=== PATIENT | female | born 2000 | race Caucasian/White ===

== ENCOUNTER 2022-07-24 05:31 | Inpatient (IN) ==
--- NOTE | 2022-05-14 10:20 | PAT Medication Instructions ---
Medication Instructions Date of Service May 14, 2022 Home Medications prenat.vits,stormy,evh-jtyv-faowc 1 tab PO DAILY aspirin 81 mg tablet 81 mg PO QAM ASK your surgeon for instructions aspirin 81 mg tablet 81 mg PO QAM DO NOT take the morning of surgery prenat.vits,stormy,nbg-fdzo-ripqu 1 tab PO DAILY Other Notes If you have any questions please call us at [phone] or [phone] or [phone] or [phone]
--- NOTE | 2022-05-20 12:03 | Anesthesiology Consultation ---
Date of Service May 20, 2022 Assessment & Plan (1) Encounter for pre-operative examination: - COVID screening: Per assessment on 05/20: No known COVID-19 positive contacts or current COVID-19 related symptoms. Travel screen negative. Patient vaccinated. At surgeon discretion if preop Covid testing being done. - Exam and advise: Pt seen at [facility] 05/20 as E&A for upcoming repeat scheduled 07/24 at [facility]. Known hx of Bustillo's syndrome mosaicism. She was seen by [facility] 04/06/22- per note "one of the largest concerns is to determine whether or not she has underlying cardiac issues or structural disease. Explained that issues with the aortic valve are the most common cardiac malformation, but there additionally are concerns for underlying issues with the aorta and aortic root, which can result in an increased risk of complications of aortic dissection.. In the absence of underlying cardiac disease/malformation, her risk for a cardiovascular event is minimum." Unremarkable echo done 03/2022 (no significant valvular disease, trileaflet AV, normal aortic root). Previous performed with GA d/t emergent nature (prolapsed cord). She is concerned about spinal anesthesia and requesting to be done under GA again if possible (has concerns with family member's having spinal headaches after SAB as well as concerns with difficulty in spinal placement d/t short stature). Per OB note 05/06/22, "WAs put to sleep with her first c/s--prolapsed cord and emergency c/s. Patient in her family have had bad reactions. She already has back pain and is concerned about that. Discussed that it is in her and baby's best interest for spinal as repeat and don't know what we are going to get into. Will get anesthesia consult." Case reviewed with Dr. Reece and Dr. Alston- proposed anesthesia plan would be for spinal (patient aware/in agreement). T/C sedation after baby is out if needed. T/C GA if needed. Patient's questions/concerns answered/reassurance provided. Chart Review Chart Review: key entry operator initiated and Patient seen in Pre Admission Testing Teaching & Discussion Pre-Anesthesia Teaching/Discussion Notes: Instructed NPO after midnight before surgery,except medications with 15 cc of water. Medication instructions provided according to the [facility] guidelines. History Surgery Operation Date: 07/24/22 07:30 Proposed Procedures p Section in LD (Delivery of Baby through Abdominal Incision) - Cassie Amanda MD, FACOG Height/Weight Height: 4 ft 11 in Weight: 102.2 kg Allergies Allergy/AdvReac Type Severity Reaction Status Date / Time sertraline [From Zoloft] AdvReac Intermediate Psychosis Verified 05/20/22 13:44 Medications Home Medications Medication Instructions Recorded Confirmed Last Taken prenat.vits,stormy,sdf-ukfa-goeuz 1 tab PO DAILY 12/04/21 05/20/22 Unknown aspirin 81 mg tablet 81 mg PO QAM 05/14/22 05/20/22 Unknown Past Medical History Medical History (Updated 05/20/22 @ 11:58 by Cassie Schmidt) Anxiety History of COVID-19 x3 (in 2019), all symptoms resolved Bustillo syndrome with mosaicism Past Family History Family History (Updated 05/14/22 @ 09:14 by Francoise Johnson, ZEESHAN) Other No family history of adverse response to anesthesia Past Surgical History Surgical History Hx of section Osteochondroma of right scapula removal S/P tonsillectomy and adenoidectomy Social History Smoking Status: Never smoker Do You Dip or Chew Tobacco: No Hx Alcohol Use: No Hx Substance Use: No substance use type: does not use Review of Systems Patient denies chest pain, shortness of breath, dyspnea on exertion, fever, chills, cough, wheezing, palpitations. Physical Exam Vital Signs VITALS BP P TEMP SP02 RESP PHYSICAL Full cervical extension range of motion. Full TMJ range of motion. TMD __ finger breaths Mallampati Score ___ Dentition: intact Lungs: clear throughout to auscultation Cardiac: regular rate and rhythm, no murmurs noted Spine: normal Carotid arteries: negative bruit Extremities: no edema Testing Echocardiogram Date: 04/13/22 EF 55-60%. No RWMA. No significant valvular disease.
--- NOTE | 2022-07-23 20:40 | History & Physical Report ---
Date of Service July 23, 2022 Assessment & Plan (1) Previous delivery affecting , antepartum: Plan: IUP at term scheduled for repeat C/S on 07/24/22 the abdominal scar is vertical and most likely we will use this same incision. the procedure and it's risks were reviewed with the patient and her and all questions were answered to her satisfaction. History of Present Illness Primary Care Provider: Analilia Still PA-C Patient is a 21 yo female EDC 07/29/22 who presents for repeat section at 39 weeks gestation. She had an emergent section under general anesthetic with first because of a prolapsed cord. This was complicated by morbid obesity and diagnosis of maternal mosaic Bustillo syndrome. she underwent an echocardiogram which was normal. she wishes to proceed with repeat section. She had requested general anesthetic for the repeat but after anesthesiology consultation she is agreeable to spinal anesthesia with the option for general if she does not have adequate spinal. Allergies Allergy/AdvReac Type Severity Reaction Status Date / Time sertraline [From Zoloft] AdvReac Intermediate Psychosis Verified 07/23/22 10:40 Home Medications Medication Instructions Recorded Confirmed Type prenat.vits,stormy,ejd-mmtj-wlvsu 1 tab PO DAILY 12/04/21 07/23/22 History aspirin 81 mg tablet 81 mg PO QAM 05/14/22 07/23/22 History calcium carbonate [Tums] 1 tab PO UD 07/13/22 07/23/22 History Patient History Medical History Anxiety History of COVID-19 x3 (in 2019), all symptoms resolved Bustillo syndrome with mosaicism Surgical History Hx of section Osteochondroma of right scapula removal S/P tonsillectomy and adenoidectomy Family History Other No family history of adverse response to anesthesia Social History Smoking Status: Never smoker Second Hand Exposure: No; Hx Alcohol Use: No Hx Substance Use: No Preferred Language: Croatian Communication Ability: Effective Network Operations Project Manager Required: No Beliefs That Will Affect Care: None marital status: Single marital status details: Clyde (26) [phone] Current Living Situation: Significant Other Current Living Situation Comment: lives with fob and son current occupational status: employed 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 Feels Safe at Home: Yes Assistive Devices: Glasses Review of Systems All systems reviewed & are unremarkable except as noted in HPI & below Physical Exam Constitutional: WD/WN, vitals as above Respiratory: normal respiratory effort, lungs clear to auscultation Cardiovascular: RRR, no murmur, no edema Gastrointestinal (Abdomen): well healed vertical incision. Psychiatric: A+Ox3, euthymic affect Genitourinary: OB Exam Abdomen: + fundal height (term), + heart tones (150), + vertex and + estimated weight (7-8 pounds) Coding Level of Care Code None Diagnoses Previous delivery affecting , antepartum O34.219
[2022-07-24] MEDS ORDERED: SODIUM CHLORIDE 0.9% 250 ML IV PRN (05:36)
[2022-07-24] MEDS ORDERED: LACTATED RINGER'S 1,000 ML IV SCH ×2 (06:00→09:15)
[2022-07-24] MEDS ORDERED: CITRIC ACID/SODIUM CITRATE 15 ML UDC PO SCH (06:00)
[2022-07-24] MEDS ORDERED: ceFAZolin 3,000 MG in DEXTROSE 5% 50 ML IV SCH (06:00)
[2022-07-24 06:13] LABS: Basophils # (auto) 0.06 K/uL (0-0.2); Basophils % (auto) 0.5 %; Eosinophils # (auto) 0.12 K/uL (0-0.50); Hematocrit (blood only) 32.2 % (37.0-47.0); Hemoglobin 10.5 g/dl (12.0-16.0); Immature Granulocytes # (auto) 0.08 K/uL (0.01-0.20); Immature Granulocytes % (auto) 0.6 %; Lymphocytes # (auto) 2.68 K/uL (1.2-3.4); Lymphocytes % (auto) 21.3 %; Mean Corpuscular Hemoglobin 26.4 pg (25.0-34.0); Mean Corpuscular Hgb Conc 32.6 g/dL (32.0-36.0); Mean Corpuscular Volume 81.1 fL (80.0-100.0); Mean Platelet Volume 11.9 fL (9.4-12.4); Monocytes # (auto) 0.93 K/uL (0.11-0.59); Monocytes % (auto) 7.4 %; Neutrophils # (auto) 8.74 K/uL (1.40-6.50); Neutrophils % (auto) 69.2 %; Platelet Count 325 K/uL (130-400); RDW Coefficient of Variation 13.2 % (11.5-14.5); Red Blood Count 3.97 M/uL (4.20-5.40); White Blood Count 12.61 K/ul (4.8-10.8)
[2022-07-24] MEDS ORDERED: PHENYLEPHRINE 100MCG/ML 5ML SYR ONE ×2 (06:46→08:47)
[2022-07-24] MEDS ORDERED: ONDANSETRON INJ 2 MG/ML 2 ML VIAL ONE (06:46)
[2022-07-24] MEDS ORDERED: fentaNYL citrate 100 MCG/2 ML VIAL ONE (06:46)
[2022-07-24] MEDS ORDERED: MoRPHine SULFATE PF 1 MG/ML 10 ML AMP/VIAL ONE (06:46)
[2022-07-24] MEDS ORDERED: OXYTOCIN 10 UNITS/ML 10ML VIAL ONE (06:46)
--- NOTE | 2022-07-24 07:41 | History & Physical Bridge Note ---
Date of Service July 24, 2022 History & Physical Bridge Note I have examined the patient, reviewed the History & Physical and in the interval since the performance of the History & Physical I have noted the following changes of clinical significance: no changes noted
[2022-07-24] MEDS ORDERED: MoRPHine SULFATE PF 1 MG/ML 10 ML AMP/VIAL INT SPINAL ONE (08:18)
[2022-07-24] MEDS ORDERED: NALOXONE HCL 1 MG in SODIUM CHLORIDE 0.9% 1000ML 1,000 ML IV PRN (08:18)
[2022-07-24] MEDS ORDERED: NALBUPHINE HCL INJ 10 MG/ML AMP IV PRN (08:18)
[2022-07-24] MEDS ORDERED: NALOXONE HCL 0.4 MG/1 ML VIAL/CARP IV PRN (08:18)
[2022-07-24] MEDS ORDERED: PROMETHAZINE HCL 6.25 MG in SODIUM CHLORIDE 0.9% 50 ML IV PRN (08:18)
[2022-07-24] MEDS ORDERED: ePHEDrine sulfate 50 MG/ML AMP IV PRN (08:18)
[2022-07-24] MEDS ORDERED: diphenhydrAMINE 50 MG/ML VIAL IV PRN (08:18)
[2022-07-24] MEDS ORDERED: LACTATED RINGER'S 500 ML IV PRN (08:18)
[2022-07-24] MEDS ORDERED: ONDANSETRON INJ 2 MG/ML 2 ML VIAL IV PRN (08:18)
[2022-07-24] MEDS ORDERED: MoRPHine SULFATE 2 MG/ML CARP IV PRN (08:18)
[2022-07-24] MEDS ORDERED: NALOXONE HCL 0.08 MG in SYRINGE 1.8 ML IV PRN (08:18)
[2022-07-24] MEDS ORDERED: NO NARCOTICS OR SEDATIVES SCH (08:30)
[2022-07-24] MEDS ORDERED: SODIUM CHLORIDE 0.9% 1000ML 1,000 ML IV SCH (08:30)
[2022-07-24] MEDS ORDERED: DC INTRASPINAL MORPHINE SCH (08:30)
[2022-07-24] MEDS ORDERED: ePHEDrine sulfate 50 MG/ML SYR ONE (08:47)
--- NOTE | 2022-07-24 09:00 | Operative Report ---
PG Post Operative Report Pre & Post Diagnosis Operation Date: 07/24/22 07:30 Pre-Op Diagnosis: Intrauterine desires repeat section Post-Op Diagnosis: Intrauterine desires repeat section I identified the patient and participated in the time-out.: Yes Procedure Operation Date: 07/24/22 07:30 Actual Procedures p Section for living male child at 0823(Bilateral) - Cassie Alston MD, FACOG Surgeon Cassie Amanda MD, FACOG Staffing Mgr Dr. Carmela Gutierrez Estimated Blood Loss 450 Findings Consistent with Post-Op Diagnosis Uterus was gravid and consistent with a term in size. Lateral tubes and ovaries are also grossly normal. There were no adhesions upon entering the abdomen as well. Specimens placenta Drains Jarrell to straight drainage. Clear urine at end of case. Anesthesia Type Spinal Complications none Disposition Accompanied Patient To Recovery: Yes Indications Patient is a 21-year-old 2 para 1-0-0-1 female with an EDC of 07/29/2022 who presents for elective repeat section. Her prior section was done emergently for a prolapsed cord. Patient is requesting repeat section with this . She understands the risk the procedure and is willing to proceed. Description of Procedure After the patient received adequate subarachnoid block she was prepped and draped in the usual sterile fashion. A prior vertical scar was then entered and taken down to the fascia. The fascia was then entered with a scalpel. The fascial incision was then extended in an up-and-down fashion with Lehman scissors. We did not encounter any adhesions on entering the abdomen. The bladder was then taken down off the anterior surface of the uterus and placed behind the bladder blade. The lower uterine segment was entered with a scalpel to the level of the membranes. It was then extended transversely in a blunt fashion. Membranes were ruptured for a copious amount of clear fluid. The male infant was delivered from the vertex presentation with moderate fundal pressure. A loose nuchal cord was reduced after delivering the head. The rest the delivered easily. He was vigorously crying and moving all 4 limbs. After approximately 1 minute the cord was clamped and cut. He was handed off to the nursery team for further drying and attention. Placenta was then expressed intact with a three-vessel cord. The uterus was exteriorized and covered with a clean lap sponge. The uterine cavity was then swept with a sponge and there was no retained tissue or membranes present. The uterus was then closed in a running locking imbricating fashion with 0 Monocryl suture in 2 layers. Hemostasis was noted to be excellent, and the gutters were then cleared of some fluid and clot. The uterus was placed back inside the abdominal cavity and it continued to have excellent hemostasis on the uterine incision. The vertical incision was then closed in a running fashion with 0 PDS. The adipose layer was then closed with a running fashion using 2-0 plain catgut. This was done after irrigating the subcutaneous layer. The skin edges were then brought together in the midline with mariana. Mirta dressing was then applied over the incision. Urine was clear at the end of the case. Patient was in stable condition upon arrival in the labor and delivery suite. I attest to the content of the Intraoperative Record and any orders documented therein. Any exceptions are noted below.
[2022-07-24] MEDS ORDERED: SENNA 8.6 MG TAB PO PRN (09:01)
[2022-07-24] MEDS ORDERED: HYDROCORTISONE ACETATE 25 MG SUPP PR PRN (09:01)
[2022-07-24] MEDS ORDERED: ACETAMINOPHEN 325 MG TAB PO PRN (09:01)
[2022-07-24] MEDS ORDERED: MAGNESIUM HYDROXIDE SUSP 30 ML UDC PO PRN (09:01)
[2022-07-24] MEDS ORDERED: DIPHTHERIA/TETANUS/PERTUSSIS 0.5mL SYR/VIAL (Age 7+yrs) IM ONE (09:01)
[2022-07-24] MEDS ORDERED: BENZOCAINE 20% AER SPR 82.5 GM CAN EXT PRN (09:01)
--- NOTE | 2022-07-24 09:11 | Anesthesiology Progress Note ---
Date of Service July 24, 2022 Anesthesia Post Procedure Vital Signs Vital Signs: Temp Pulse Resp BP Pulse Ox 07/24/22 05:46 36.7 C 18 07/24/22 09:07 79 95 07/24/22 09:08 89 123/56 L 94 07/24/22 07:03 37.1 C 86 18 114/55 L 07/24/22 05:44 103 H 103/57 L Transfer of Care Handoff Completed per policy Notes Mental Status: alert / awake / arousable Patient Amnestic to Procedure: No Nausea / Vomiting: adequately controlled Pain: adequately controlled Airway Patency, RR, SpO2: stable & adequate BP & HR: stable & adequate Hydration State: stable & adequate Neuraxial Anesthesia: was administered and sensory block is resolving Anesthetic Complications: no major complications apparent and Pt Satisfied with anesthetic care
[2022-07-24] MEDS: KETOROLAC 30 MG/ML VIAL IV PRN ×2 (09:41→14:56)
[2022-07-24] MEDS: OXYTOCIN 20 UNITS in LACTATED RINGER'S 1,000 ML IV SCH ×2 (12:43→21:21)
[2022-07-24] MEDS: SIMETHICONE 80 MG CHEW PO SCH (21:01)
[2022-07-24] MEDS: DOCUSATE SODIUM 100 MG CAP PO SCH (21:01)
[2022-07-25] MEDS: KETOROLAC 30 MG/ML VIAL IV PRN (00:12)
[2022-07-25] MEDS ORDERED: KETOROLAC 30 MG/ML VIAL IV PRN (02:00)
[2022-07-25] MEDS ORDERED: ONDANSETRON INJ 2 MG/ML 2 ML VIAL IV PRN (02:20)
[2022-07-25] MEDS ORDERED: PROMETHAZINE HCL 25 MG in SODIUM CHLORIDE 0.9% 50 ML IV PRN (02:20)
[2022-07-25] MEDS ORDERED: diphenhydrAMINE 50 MG/ML VIAL IV PRN (02:20)
[2022-07-25] MEDS ORDERED: diphenhydrAMINE Capsule 25 MG CAP PO PRN (02:20)
[2022-07-25] MEDS ORDERED: MEPERIDINE HCL 50 MG/ML CARP IV PRN (02:20)
[2022-07-25] MEDS ORDERED: oxyCODONE/ACETAMINOPHEN 5mg/325mg TAB PO PRN (02:20)
--- NOTE | 2022-07-25 06:21 | Obstetrical Progress Note ---
Date of Service July 25, 2022 Assessment & Plan (1) care following delivery: (2) Group beta Strep positive: (3) Bustillo syndrome with mosaicism: (4) Obesity affecting , antepartum: Plan - Overall, feeling well and eating well today - Infant feeding going well without concern - Urinating and passing gas appropriately - Ambulating well in room - Pain controlled w/ Toradol, ordered 0.5 tablet Percocet - Left sided deep calf pain and ecchymosis, ordered Venous Duplex US - Hgb 10.5 on 07/24, 9.7 on 07/25 - Vitals stable and wnl - Routine PP care progressing well - Anticipate discharge @ 48-72 hours PP - Recommending f/u outpatient in 6 weeks Admission and Anticipated Discharge Date Admission Date: July 24, 2022 Supervising Physician Co-Signing Physician Notes Resident Physician Supervision Note: I interviewed and examined the patient. Discussed with Dr. Velasquez and agree with findings and plan as documented in the note. Any exceptions or clarifications are listed here: [None] Documented By: Cassie Amanda MD, FACOG Subjective Patient is a 21F who is POD #1 following delivery at 39 0/7. She reports feeling well overall this morning. - Ambulation - well throughout room - Voiding/Jarrell - independent voids, no dysuria or pressure - Gas/Stool - passing gas, no bowel movement - Diet - regular (small amounts), no nausea or emesis - Lochia - diminishing, heavy (2 pads since delivery) - Infant Feeding Type - breast and formula feeding - Pain Level - 6/10, controlled with Toradol Review of Systems - Denies fever, chills, sweats - Denies shortness of breath, difficulty breathing, chest pain, palpitations, chest pressure. - Denies breast pain. - Denies dysuria. - Denies headache or changes in vision. Physical Exam Physical Exam: General: Alert, oriented. No acute distress. Cardiac: RRR, normal S1/S2, no murmurs/rubs/gallops. Respiratory: Non-labored, CTAB, no wheezes/rales/rhonchi. Symmetric chest rise. Abdomen: Soft, nontender, nondistended. Bowel sounds present. Uterus: Uterine fundus firm, palpable 2 cm below umbilicus. Incision: Clean and dry w/o erythema or purulence, DEMARCO intact Lower Extremities: No lower extremity edema or swelling. Left deep calf pain. Left posterior inferior calf ecchymosis. Silvana's negative bilaterally. Results & Data ([facility]) Vital Signs (Past 12 Hours) Vital Signs Temp Pulse Resp BP Pulse Ox O2 Del Method 07/25/22 03:45 36.5 C 90 18 108/74 97 Room Air 07/25/22 02:30 18 97 07/25/22 02:02 18 96 07/25/22 01:05 18 96 07/25/22 00:00 20 97 07/24/22 23:00 18 96 07/24/22 23:19 36.6 C 100 H 18 99/66 L 94 Room Air 07/24/22 22:17 16 96 07/24/22 21:30 16 98 07/24/22 20:30 16 99 07/24/22 19:53 16 98 07/24/22 19:53 36.7 C 88 16 103/69 98 Room Air 07/24/22 18:51 20 99 Resident Activity Tracking Resident Involvement: Resident Care Provided Care Provided: OB Delivery
[2022-07-25 07:03] LABS: Basophils # (auto) 0.06 K/uL (0-0.2); Basophils % (auto) 0.5 %; Eosinophils # (auto) 0.14 K/uL (0-0.50); Eosinophils % (auto) 1.1 %; Hematocrit (blood only) 30.6 % (37.0-47.0); Hemoglobin 9.7 g/dl (12.0-16.0); Immature Granulocytes # (auto) 0.07 K/uL (0.01-0.20); Immature Granulocytes % (auto) 0.6 %; Mean Corpuscular Hemoglobin 26.1 pg (25.0-34.0); Mean Corpuscular Hgb Conc 31.7 g/dL (32.0-36.0); Mean Corpuscular Volume 82.5 fL (80.0-100.0); Mean Platelet Volume 11.9 fL (9.4-12.4); Monocytes # (auto) 0.86 K/uL (0.11-0.59); Monocytes % (auto) 6.8 %; Neutrophils # (auto) 9.66 K/uL (1.40-6.50); Platelet Count 262 K/uL (130-400); RDW Coefficient of Variation 13.5 % (11.5-14.5); RDW Standard Deviation 40.6 fL (36.4-46.3); Red Blood Count 3.71 M/uL (4.20-5.40); White Blood Count 12.69 K/ul (4.8-10.8)
[2022-07-25] MEDS: DOCUSATE SODIUM 100 MG CAP PO SCH ×2 (08:50→20:32)
[2022-07-25] MEDS: SIMETHICONE 80 MG CHEW PO SCH ×4 (08:50→20:32)
[2022-07-25] MEDS: PRENATAL VITAMIN 1 TAB PO SCH (08:50)
[2022-07-25] MEDS: FERROUS SULFATE 325 MG TAB PO SCH (08:50)
[2022-07-25] MEDS: oxyCODONE/ACETAMINOPHEN 5mg/325mg TAB PO PRN ×4 (08:51→23:23)
[2022-07-25] MEDS: IBUPROFEN 600 MG TAB PO PRN ×4 (08:51→23:22)
--- NOTE | 2022-07-25 10:49 | Ultrasound Report ---
LEFT LOWER EXTREMITY VENOUS DOPPLER CLINICAL HISTORY: Deep calf pain r/o DVT COMPARISON STUDY: No previous studies for comparison. TECHNIQUE: Sonography of the deep venous system of the left lower extremity was performed. Compressi on and augmentation were evaluated. FINDINGS: The left common femoral, superficial femoral and popliteal veins were compressible. Augmen tation was normal. Flow was shown within the deep calf vessels. IMPRESSION: No evidence of deep venous thrombus within the left lower extremity. ACT 112: Negative or not required by law. Electronically signed by: James Rodas M.D. 07/25/2022 10:48 AM
[2022-07-25] MEDS ORDERED: bisacodyL 5 MG TABEC PO SCH (20:00)
[2022-07-26] MEDS: oxyCODONE/ACETAMINOPHEN 5mg/325mg TAB PO PRN ×2 (06:13→10:21)
[2022-07-26] MEDS: IBUPROFEN 600 MG TAB PO PRN ×2 (06:13→10:21)
[2022-07-26 06:40] LABS: Hematocrit (blood only) 30.7 % (37.0-47.0); Hemoglobin 9.7 g/dl (12.0-16.0)
[2022-07-26] MEDS: PRENATAL VITAMIN 1 TAB PO SCH (07:42)
[2022-07-26] MEDS: FERROUS SULFATE 325 MG TAB PO SCH (07:42)
[2022-07-26] MEDS: DOCUSATE SODIUM 100 MG CAP PO SCH (07:42)
[2022-07-26] MEDS: SIMETHICONE 80 MG CHEW PO SCH (07:42)
--- NOTE | 2022-07-26 08:19 | Obstetrical Progress Note ---
Date of Service July 26, 2022 Assessment & Plan (1) care following delivery: (2) Group beta Strep positive: (3) Bustillo syndrome with mosaicism: (4) Obesity affecting , antepartum: Plan - Overall, feeling well and eating well today - Infant feeding going well without concern - Urinating and passing gas appropriately - Ambulating well in room - Pain controlled w/ Toradol, ordered 0.5 tablet Percocet - Left sided deep calf pain and ecchymosis, ordered Venous Duplex US - Hgb 10.5 on 07/24, 9.7 on 07/25 - Vitals stable and wnl - Routine PP care progressing well - Anticipate discharge @ 48-72 hours PP - Recommending f/u outpatient in 6 weeks Subjective Ambulation: ambulating normally Voiding: no voiding problems Passing Gas:: Yes Diet Tolerance:: regular diet Feeding Type:: breast feeding Constitutional: + as per Subjective / HPI Physical Exam Constitutional WD/WN, vitals as above well developed and well nourished Respiratory normal respiratory effort, lungs clear to auscultation normal respiratory effort Cardiovascular RRR, no murmur, no edema Gastrointestinal (Abdomen) normal bowel sounds, soft, nontender, no hepatosplenomegaly Results & Data ([facility]) Vital Signs (Past 12 Hours) Vital Signs Temp Pulse Resp BP 07/25/22 23:23 98.1 F 92 H 18 118/74
[2022-07-26] MEDS ORDERED: bisacodyL 10 MG SUPP PR PRN (09:01)
[2022-07-26] MEDS ORDERED: MEASLES, MUMPS & RUBELLA VIRUS VIAL SQ ONE (10:02)
--- NOTE | 2022-07-29 13:49 | Discharge Summary (DS) ---
DATE OF PROCEDURE: 07/24/2022. DATE OF DISCHARGE: 07/26/2022. PRINCIPAL DIAGNOSIS: Intrauterine at term, prior section, patient requesting repeat section. POSTOPERATIVE DIAGNOSES: 1. Intrauterine at term, prior section, patient requesting repeat section. 2. Delivery of a viable male . PROCEDURE: Repeat low transverse section. HISTORY: The patient is a 22-year-old 2, para 1-0-0-1 female who presents for repeat section at 39 weeks. She underwent the section without any complications. She had an uncomplicated postoperative course. A DEMARCO dressing was applied at the time of her section. She remained afebrile throughout her hospital stay, was ambulating and voiding without difficulty and eating regular diet on her first postop day. She was taking only Tylenol and Motrin for her pain, which was well controlled. Hemoglobin on admission was 10.5, hematocrit 32.2. First postop day hemoglobin 9.7, hematocrit 30.6. Second postop day, hemoglobin 9.7, hematocrit of 30.7. She was sent home in good condition with a prescription for Motrin 600 mg p.o. every 6 hours p.r.n. pain and percocet 1 p.o. q.6 hours p.r.n. pain. She is to call for any temperature above 101 degrees or higher, heavy vaginal bleeding, burning with urination, increased redness, drainage through her DEMARCO dressing, calf tenderness or any other concerns. She is to be seen in the office in one week for removal of the DEMARCO dressing and her mariana. Job ID: [id number] [facility]
== END 2022-07-26 11:45 | disposition home or self-care (01) | DRG 788 ==
LOC: 4S1 05:31 → EDSTATUS 07:30 → 4E2 12:05

== ENCOUNTER 2023-12-27 05:34 | Inpatient (IN) ==
--- NOTE | 2023-12-14 14:40 | Anesthesiology Consultation ---
Date of Service December 14, 2023 Assessment & Plan (1) Encounter for pre-operative examination: - Infectious disease screening: Per assessment on 12/14/23: No known recent infectious disease contacts or current infectious disease symptoms. - Previous anesthesia concerns/hx: * PAT exam and advise visit (05/20/22): "Known hx of Bustillo's syndrome mosaicism. [facility] 04/[facility]- per note "one of the largest concerns is to determine whether or not she has underlying cardiac issues or structural disease. Explained that issues with the aortic valve are the most common cardiac malformation, but there additionally are concerns for underlying issues with the aorta and aortic root, which can result in an increased risk of complications of aortic dissection.. In the absence of underlying cardiac disease/malformation, her risk for a cardiovascular event is minimum." Unremarkable echo done 03/2022 (no significant valvular disease, trileaflet AV, normal aortic root). Previous performed with [place] d/t emergent nature (prolapsed cord). She is concerned about spinal anesthesia and requesting to be done under [place] again if possible (has concerns with family member's having spinal headaches after SAB as well as concerns with difficulty in spinal placement d/t short stature). Per OB note 05/06/22, "WAs put to sleep with her first c/s--prolapsed cord and emergency c/s. Patient in her family have had bad reactions. She already has back pain and is concerned about that. Discussed that it is in her and baby's best interest for spinal as repeat and don't know what we are going to get into. Will get anesthesia consult." Case reviewed with Dr. Reece and Dr. Alston- proposed anesthesia plan would be for spinal (patient aware/in agreement). T/C sedation after baby is out if needed. T/C GA if needed. Patient's questions/concerns answered/reassurance provided. * Repeat (07/24/22): SAB x1 attempt at [facility]. No issues noted per post- op anesthesia progress note. Chart Review Chart Review: Acceptable Risk for Surgery and Patient NOT seen in Pre Admission Testing History Surgery Operation Date: 12/27/23 08:50 Proposed Procedures p Section (Delivery of Baby Through Abdominal Incision) - Cassie Amanda MD, FACOG s wiht Bilateral Tubal Ligation - Cassie Amanda MD, FACOG Height/Weight Height: 4 ft 11 in Weight: 104.326 kg Allergies Allergy/AdvReac Type Severity Reaction Status Date / Time sertraline [From Zoloft] AdvReac Intermediate Psychosis Verified 12/14/23 13:57 Medications Home Medications Medication Instructions Recorded Confirmed Last Taken slgfludj-hbh-Hq-FA 1 mg 1 tab PO QAM 12/14/23 12/14/23 Unknown tablet Past Medical History Medical History Group B streptococcal infection during History of anxiety History of COVID-19 x3 (in 2019), all symptoms resolved Bustillo syndrome with mosaicism Echo 08/2023: Trileaflet AV without evidence of AR/aortic stenosis, aortic root size normal Past Family History Family History Grandmother (Maternal) Breast cancer Other No family history of adverse response to anesthesia Denies family history of Ovarian cancer Colorectal cancer Past Surgical History Surgical History Hx of section (2022) x2 2022 Osteochondroma of right scapula (2014) removal S/P tonsillectomy and adenoidectomy (2005) Social History Smoking Status: Never smoker Do You Dip or Chew Tobacco: No Hx Alcohol Use: No Hx Substance Use: No substance use type: does not use Testing Echocardiogram Date: 09/27/23 EF 50-55%. LV wall motion is normal. No ASD detected. Mild TR. Trileaflet aortic valve. No significant AR/aortic stenosis. Aortic root normal in size.
--- NOTE | 2023-12-16 16:25 | History & Physical Report ---
Date of Service December 16, 2023 Assessment & Plan (1) Previous delivery affecting : Plan: Intrauterine at term with prior section x 2 presents for repeat section and bilateral salpingectomies because of multiparity and unwanted fertility. The procedures and the risks were reviewed with the patient and her , and all questions were answered to their satisfaction. History of Present Illness Primary Care Provider: Analilia Still PA-C Patient is a 23-year-old 3 para 2-0-0-2 female EDC 01/01/[birth year]24 who presents at 39 weeks for repeat section and bilateral salpingectomies. Her first section was done because of nonreassuring heart rate pattern and it was done emergently. Her second section was as a elective repeat. 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 GBS is also positive. 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: Trileaflet AV without evidence of AR/aortic stenosis, aortic root size normal Surgical History Hx of section (2022) x2 2022 Osteochondroma of right scapula (2014) removal S/P tonsillectomy and adenoidectomy (2005) Family History Grandmother (Maternal) Breast cancer Other No family history of adverse response to anesthesia Denies family history of Ovarian cancer Colorectal cancer Social History Smoking Status: Never smoker Second Hand Exposure: No; Do You Dip or Chew Tobacco: No; Hx Alcohol Use: No Hx Substance Use: No Preferred Language: Greek Communication Ability: Effective [employer]ed [employer] Boards Router Required: No Beliefs That Will Affect Care: None marital status: Single marital status details: Clyde Grant (28) [phone] Current Living Situation: Spouse and Family Current Living Situation Comment: Lives with FOB and other children current occupational status: employed current occupation: [employer] Feels Safe at Home: Yes Assistive Devices: None Review of Systems All systems reviewed & are unremarkable except as noted in HPI & below Physical Exam Constitutional: WD/WN, vitals as above Respiratory: normal respiratory effort, lungs clear to auscultation Cardiovascular: RRR, no murmur, no edema Gastrointestinal (Abdomen): well healed vertical incision Psychiatric: A+Ox3, euthymic affect Genitourinary: OB Exam Abdomen: + fundal height (term), + heart tones (140's) and + vertex Coding Level of Care Code None Diagnoses Previous delivery affecting O34.219
[2023-12-27 06:02] LABS: Basophils # (auto) 0.04 K/uL (0.00-0.20); Basophils % (auto) 0.3 %; Eosinophils # (auto) 0.11 K/uL (0.00-0.50); Eosinophils % (auto) 0.9 %; Hematocrit (blood only) 35.3 % (37.0-47.0); Hemoglobin 10.9 g/dl (12.0-16.0); Immature Granulocytes # (auto) 0.09 K/uL (0.01-0.20); Immature Granulocytes % (auto) 0.8 %; Lymphocytes # (auto) 2.55 K/uL (1.20-3.40); Lymphocytes % (auto) 21.5 %; Mean Corpuscular Hgb Conc 30.9 g/dL (32.0-36.0); Mean Corpuscular Volume 77.8 fL (80.0-100.0); Mean Platelet Volume 12.3 fL (9.4-12.4); Monocytes # (auto) 0.99 K/uL (0.11-0.59); Monocytes % (auto) 8.3 %; Neutrophils % (auto) 68.2 %; Platelet Count 412 K/uL (130-400); RDW Coefficient of Variation 15.3 % (11.5-14.5); RDW Standard Deviation 41.8 fL (36.4-46.3); Red Blood Count 4.54 M/uL (4.20-5.40); White Blood Count 11.88 K/ul (4.8-10.8)
[2023-12-27] MEDS: LACTATED RINGER'S 1,000 ML IV ONE ×3 (06:14→23:08)
[2023-12-27] MEDS ORDERED: MoRPHine SULFATE PF 1 MG/ML 10 ML AMP/VIAL ONE (06:32)
[2023-12-27] MEDS ORDERED: fentaNYL citrate PF 100 MCG/2 ML VIAL ONE (06:32)
[2023-12-27] MEDS ORDERED: OXYTOCIN 10 UNITS/ML VIAL ONE ×3 (06:32)
--- NOTE | 2023-12-27 07:19 | History & Physical Bridge Note ---
Date of Service December 27, 2023 History & Physical Bridge Note I have examined the patient, reviewed the History & Physical and in the interval since the performance of the History & Physical I have noted the following changes of clinical significance: no changes noted
[2023-12-27] MEDS: CITRIC ACID/SODIUM CITRATE 15 ML UDC PO ONE (07:27)
[2023-12-27] MEDS: ceFAZolin 3000MG 3,000 MG/72.5 ML BAG IV SCH (07:31)
[2023-12-27] MEDS ORDERED: SODIUM CHLORIDE 0.9% 250 ML IV PRN (07:56)
[2023-12-27] MEDS ORDERED: NALOXONE HCL 0.08 MG in SYRINGE 1.8 ML IV PRN (08:04)
[2023-12-27] MEDS ORDERED: NALOXONE HCL 1 MG in SODIUM CHLORIDE 0.9% 1,000 ML IV PRN (08:04)
[2023-12-27] MEDS ORDERED: ePHEDrine sulfate 50 MG/ML AMP IV PRN (08:04)
[2023-12-27] MEDS ORDERED: ONDANSETRON INJ 2 MG/ML 2 ML VIAL IV PRN (08:04)
[2023-12-27] MEDS ORDERED: NALBUPHINE HCL 5 MG in SYRINGE 0 ML IV PRN (08:04)
[2023-12-27] MEDS ORDERED: HYDROmorphone INJ 0.5 MG/0.5 ML SYR IV PRN (08:04)
[2023-12-27] MEDS ORDERED: diphenhydrAMINE 50 MG/ML VIAL IV PRN (08:04)
[2023-12-27] MEDS ORDERED: NALOXONE HCL 0.4 MG/1 ML VIAL/CARP IV PRN (08:04)
[2023-12-27] MEDS ORDERED: ONDANSETRON INJ 2 MG/ML 2 ML VIAL ONE (08:14)
[2023-12-27] MEDS ORDERED: DC INTRASPINAL MORPHINE SCH (08:15)
[2023-12-27] MEDS ORDERED: NO NARCOTICS OR SEDATIVES SCH (08:15)
--- NOTE | 2023-12-27 08:51 | Post Operative Brief Note ---
Immediate Post Op Note Date of Surgery December 27, 2023 Pre & Post Diagnosis Operation Date: 12/27/23 07:30 Pre-Op Dx- IUP at term, prior section X2 unwanted fertility Post-Op Dx- same plus delivery of viable male infant I identified the patient and participated in the time-out.: Yes Procedure Operation Date: 12/27/23 07:30 Actual Procedures p Section in LD with result of live male child at 0808 - Cassie Amanda MD, FACOG Surgeon Cassie Amanda MD, FACOG Oven Attendant Domenica Yap MD Quantitative Blood Loss (QBL) 181 Findings Consistent with Post-Op Diagnosis gravid uterus -bilateral fallopian tubes and ovaries grossly normal Specimens Specimen Description: A: Placenta B: Cord Blood C: Left and Right Fallopian tube Drains Jarrell Catheter (placed in OR draining clear urine, pt tolerated well) Anesthesia Type Spinal Complications none Disposition Accompanied Patient To Recovery: Yes
[2023-12-27] MEDS ORDERED: BENZOCAINE 20% SPRY 85 APPLN/85 GM CAN EXT PRN (08:57)
[2023-12-27] MEDS ORDERED: DIPHTHER/TETAN/PERTUS Vaccine (Tdap, Adol/Adult) 0.5mL IM ONE (08:57)
[2023-12-27] MEDS ORDERED: HYDROCORTISONE ACETATE 25 MG SUPP PR PRN (08:57)
[2023-12-27] MEDS ORDERED: ACETAMINOPHEN 325 MG TAB PO PRN (09:02)
--- NOTE | 2023-12-27 09:07 | Anesthesiology Progress Note ---
Date of Service December 27, 2023 Anesthesia Post Procedure Vital Signs Vital Signs: Temp Pulse Resp BP Pulse Ox 12/27/23 09:01 70 94 12/27/23 08:56 77 118/56 L 94 12/27/23 07:06 36.5 C 20 12/27/23 07:02 75 108/61 12/27/23 05:47 36.8 C 16 12/27/23 05:42 72 119/76 Notes Mental Status: alert / awake / arousable Patient Amnestic to Procedure: Yes Nausea / Vomiting: adequately controlled Pain: adequately controlled Airway Patency, RR, SpO2: stable & adequate BP & HR: stable & adequate Hydration State: stable & adequate Neuraxial Anesthesia: was administered and sensory block is resolving Anesthetic Complications: no major complications apparent
[2023-12-27] MEDS: LACTATED RINGER'S 500 ML IV ONE ×2 (09:28→17:49)
--- NOTE | 2023-12-27 10:05 | Operative Report ---
Post Operative Report Pre & Post Diagnosis Operation Date: 12/27/23 07:30 Pre-Op Diagnosis: Pre-Op Dx- IUP at term, prior section X2 multiparity and unwanted fertility Post-Op Diagnosis: Post-Op Dx- same plus delivery of viable male I identified the patient and participated in the time-out.: Yes Procedure Operation Date: 12/27/23 07:30 Actual Procedures p Section in LD with result of live male child at 0808 - Cassie Amanda MD, FACOG bilateral salpingectomy Surgeon Cassie Amanda MD, FACOG Community Assistant Domenica Yap MD Quantitative Blood Loss (QBL) 181 Findings Consistent with Post-Op Diagnosis Specimens placenta to hold Drains Jarrell catheter to straight drainage- clear urine at end of case Anesthesia Type Spinal Complications none Disposition Accompanied Patient To Recovery: Yes Disposition: L&D Indications Intrauterine at 39-2/7 weeks-unwanted fertility Prior section x 2-for repeat section and bilateral salpingectomies Description of Procedure As the patient received adequate subarachnoid block she was prepped and draped in usual sterile fashion. A vertical skin incision was made through her prior scar and carried to the fascia with the same scalpel. The peritoneum was entered while entering the fascia. Fascial incision was then extended with Lehman scissors in an up-and-down fashion. The bladder was then taken down off the anterior surface of the uterus and placed behind the bladder blade. Lower uterine segment was entered with scalpel and extended transversely by stretching the incision in a cephalad and caudad direction. Membranes were ruptured for clear fluid. The infant was delivered from the vertex presentation with moderate fundal pressure. After the head was delivered the rest the delivered with ease. He was vigorous crying and moving all 4 limbs. The cord was clamped and cut and he was handed off to Dr. Browning who was in attendance as electro mechanical assembler. After cord blood was obtained, the placenta was expressed intact with a three-vessel cord. The uterus was then exteriorized to cover the clean lap sponge. Uterine cavity was explored and found to be free of any placental tissue or membranes. The uterus was then closed in a running locking imbricating fashion in 2 layers with 0 Monocryl. Hemostasis noted to be satisfactory on the uterine incision and attention was then turned to the fallopian tubes. The left fallopian tube was identified and followed was fimbriated end. It was grasped in the midportion with a [place] clamp. Using a LigaSure device, the fallopian tube was removed in its entirety to its insertion on the cornua. Hemostasis was noted to be excellent. The right fallopian tube was then identified and followed to its fimbriated end, it was then grasped in the midportion with a [place] clamp. LigaSure device was then used to remove the fallopian tube in its entirety to its insertion on the cornua. Bleeding at the cornual insertion was controlled with the LigaSure device. At this point hemostasis noted be excellent. Posterior cul-de-sac was suctioned for small amount of peritoneal fluid. The uterus was then gently placed back inside the abdominal cavity. The salpingectomy sites were once again examined and found to have excellent hemostasis as did the uterine incision. The fascia was then closed in a running fashion with 0 PDS suture. Kian's fascia was then closed with 0 Monocryl in a running fashion. Skin edges were reapproximated with mariana. A lisa dressing was then applied at the end of the case. Mother and infant were doing well after delivery and stable upon arrival back in labor and delivery. I attest to the content of the Intraoperative Record and any orders documented therein. Any exceptions are noted below. OB Procedure Charges [id number] Add on Tubal for C/S (bilateral salpingectomy)
--- NOTE | 2023-12-27 11:09 | Obstetrical Progress Note ---
Date of Service December 27, 2023 Assessment & Plan (1) Encounter for assessment: Plan PPD [ ]: stable, routine management -Patient is voiding and ambulating on their own power -Pain is well controlled on as needed analgesia -Tolerating regular diet without nausea or vomiting -Planned to [Breast][Bottle] feed * [Anticipate d/c home today][Reassess d/c readiness tomorrow] * 6 weeks OB outpatient follow-up Subjective Voiding: no voiding problems and hogan catheter in place Diet Tolerance:: regular diet Lochia:: Moderate Feeding Type:: breast feeding Pt is a _ y/o female G_P_ who is now PPD#_ following _ at _ weeks. Reports feeling well overall this morning. _ abdominal cramping and _/10 pain, well managed on analgesics. Voiding _. Tolerating meals and able to ambulate some. _ passing gas and _ bowel movements. Some persistent lochia with overall improvement as of this morning. _Breast/bottle feeding. Review of Systems -Denies fever or chills -Denies dyspnea, chest pain, or palpitations -Denies breast pain -Denies dysuria -Denies headache or changes in vision Physical Exam General: Alert and oriented. No acute distress Cardiac: Regular rate and rhythm, no murmurs appreciated Respiratory: Lungs clear to auscultation bilaterally, No increased work of breathing Abdominal: Soft, non-tender, non-distended. Bowel sounds present. Uterus: Uterine fundus firm, palpable below umbilicus Extremities: No lower extremity edema, calves non-tender bilaterally Results & Data Vital Signs (Past 12 Hours) Vital Signs Temp Pulse Resp BP Pulse Ox 12/27/23 10:56 51 L 110/61 12/27/23 10:54 46 L 98 12/27/23 10:49 49 L 98 12/27/23 10:46 58 L 118/59 L 12/27/23 10:44 63 97 12/27/23 10:39 44 L 98 12/27/23 10:36 45 L 122/67 12/27/23 10:34 46 L 97 12/27/23 10:32 35.5 C L 16 12/27/23 10:29 47 L 96 12/27/23 10:24 62 96 12/27/23 10:16 97 12/27/23 10:16 50 L 12/27/23 10:16 50 L 118/58 L 12/27/23 10:11 51 L 96 12/27/23 10:06 53 L 109/54 L 96 12/27/23 10:01 54 L 96 12/27/23 09:56 16 12/27/23 09:56 96 12/27/23 09:56 55 L 12/27/23 09:56 48 L 122/59 L 12/27/23 09:51 53 L 94 12/27/23 09:47 54 L 111/53 L 12/27/23 09:46 16 12/27/23 09:46 54 L 95 12/27/23 09:41 61 95 12/27/23 09:36 16 12/27/23 09:36 96 12/27/23 09:36 56 L 12/27/23 09:36 93 H 111/65 12/27/23 09:31 60 94 12/27/23 09:26 95 12/27/23 09:26 64 12/27/23 09:26 87 114/72 12/27/23 09:21 65 95 12/27/23 09:20 59 L 93 12/27/23 09:16 20 12/27/23 09:16 71 104/54 L 98 12/27/23 09:11 67 96 12/27/23 09:06 20 12/27/23 09:06 68 132/60 97 12/27/23 09:01 70 94 12/27/23 08:56 36.4 C L 12/27/23 08:56 77 118/56 L 94 12/27/23 07:06 36.5 C 12/27/23 07:02 75 108/61 12/27/23 05:47 36.8 C 12/27/23 05:42 72 119/76 Resident Activity Tracking Resident Involvement: Resident Care Provided Care Provided: OB Delivery
[2023-12-27] MEDS: MoRPHine SULFATE PF 1 MG/ML 10 ML AMP/VIAL INT SPINAL ONE (11:18)
[2023-12-27] MEDS: SODIUM CHLORIDE 0.9% 1,000 ML IV SCH (11:19)
[2023-12-27] MEDS: KETOROLAC 30 MG/ML VIAL IV PRN (11:29)
[2023-12-27] MEDS: OXYTOCIN 20 UNITS/LR 1,002 ML IV SCH (11:48)
[2023-12-27] MEDS: SIMETHICONE 80 MG CHEW PO SCH (13:39)
[2023-12-27] MEDS: LACTATED RINGER'S 500 ML IV PRN (17:49)
[2023-12-27] MEDS: DOCUSATE SODIUM 100 MG CAP PO SCH (21:07)
[2023-12-27] MEDS: LACTATED RINGER'S 1,000 ML IV SCH (22:56)
[2023-12-28] MEDS ORDERED: PROMETHAZINE HCL 25 MG in SODIUM CHLORIDE 0.9% 50 ML IV PRN (02:05)
[2023-12-28] MEDS ORDERED: ONDANSETRON INJ 2 MG/ML 2 ML VIAL IV PRN (02:05)
[2023-12-28] MEDS ORDERED: diphenhydrAMINE Capsule 25 MG CAP PO PRN (02:05)
[2023-12-28] MEDS ORDERED: diphenhydrAMINE 50 MG/ML VIAL IV PRN (02:05)
[2023-12-28] MEDS ORDERED: MEPERIDINE HCL 50 MG/ML CARP IV PRN (02:05)
[2023-12-28] MEDS: KETOROLAC 30 MG/ML VIAL IV PRN (03:08)
--- NOTE | 2023-12-28 06:37 | Obstetrical Progress Note ---
Date of Service <Jose Guillen MD - Last Filed: 12/28/23 07:36> December 28, 2023 Assessment & Plan <Jose Guillen MD - Last Filed: 12/28/23 07:36> (1) Encounter for assessment: visit type: exam and care immediately after delivery Qualified Code(s): Z39.0 - Encounter for care and examination of mother immediately after delivery Plan 23F y/o G 3 P 3 39 Wk GA presented for elective PPD 1 stable, routine management -Patient is voiding and ambulating independently -Pain is well controlled on as needed analgesia -Tolerating crackers without nausea or vomiting -Planned to Breast feed * Reassess d/c readiness tomorrow. * 1 weeks OB outpatient follow-up and removal of DEMARCO dressing <Cassie Amanda MD, FACOG - Last Filed: 12/28/23 08:16> (1) Encounter for assessment: Subjective <Jose Guillen MD - Last Filed: 12/28/23 07:36> Ambulation: ambulating normally Voiding: no voiding problems Diet Tolerance:: regular diet (crackers) Lochia:: Moderate Feeding Type:: breast feeding Pt is a 23 y/o female who is now PPD#1 following elective C-sec at 39 weeks. Reports feeling well overall this morning. No abdominal cramping and 0- 4/10 pain, well managed on analgesics. Voiding well. Tolerating crackers and able to ambulate some. Not passing gas and No bowel movements. Some persistent lochia with overall improvement as of this morning. Breast feeding. Review of Systems c/o some discomfort on passing urine after removal of hogan's -Denies fever or chills -Denies dyspnea, chest pain, or palpitations -Denies breast pain -Denies dysuria -Denies headache or changes in vision Physical Exam <Jose Guillen MD - Last Filed: 12/28/23 07:36> General: Alert and oriented. No acute distress Cardiac: Regular rate and rhythm, no murmurs appreciated Respiratory: Lungs clear to auscultation bilaterally, No increased work of breathing Abdominal: Soft, appropriately tender over the longitudinal scar, DEMARCO dressing on - suctioning well, abdo non-distended. Bowel sounds present. Uterus: Uterine fundus firm, palpable at umbilicus level. Extremities: no lower extremity edema, calves non-tender bilaterally Results & Data <Jose Guillen MD - Last Filed: 12/28/23 07:36> Vital Signs (Past 12 Hours) Vital Signs Temp Pulse Resp BP Pulse Ox O2 Del Method 12/28/23 03:40 36.4 C L 72 16 115/73 95 Room Air 12/28/23 02:00 14 94 12/28/23 01:26 16 94 12/28/23 00:11 16 95 12/27/23 23:00 18 96 12/27/23 23:00 36.4 C L 64 18 106/71 96 Room Air 12/27/23 22:12 16 95 12/27/23 21:20 14 98 12/27/23 20:39 77 12/27/23 20:39 18 96 12/27/23 19:20 16 100 12/27/23 19:20 36.4 C L 53 L 16 121/83 100 Room Air Supervising Physician <Cassie Amanda MD, FACOG - Last Filed: 12/28/23 08:16> Co-Signing Physician Notes Resident Physician Supervision Note: I interviewed and examined the patient. Discussed with Dr. Guillen and agree with findings and plan as documented in the note. Any exceptions or clarifications are listed here: [None] Documented By: Cassie Amanda MD, FACOG Resident Activity Tracking <Jose Guillen MD - Last Filed: 12/28/23 07:36> Resident Involvement: Resident Care Provided Care Provided: OB Delivery
[2023-12-28 07:23] LABS: Basophils # (auto) 0.05 K/uL (0.00-0.20); Basophils % (auto) 0.4 %; Eosinophils # (auto) 0.15 K/uL (0.00-0.50); Eosinophils % (auto) 1.3 %; Hematocrit (blood only) 30.7 % (37.0-47.0); Hemoglobin 9.3 g/dl (12.0-16.0); Immature Granulocytes # (auto) 0.07 K/uL (0.01-0.20); Immature Granulocytes % (auto) 0.6 %; Lymphocytes # (auto) 1.81 K/uL (1.20-3.40); Lymphocytes % (auto) 15.7 %; Mean Corpuscular Hemoglobin 23.9 pg (25.0-34.0); Mean Corpuscular Hgb Conc 30.3 g/dL (32.0-36.0); Mean Corpuscular Volume 78.9 fL (80.0-100.0); Mean Platelet Volume 12.4 fL (9.4-12.4); Monocytes # (auto) 0.76 K/uL (0.11-0.59); Monocytes % (auto) 6.6 %; Neutrophils # (auto) 8.67 K/uL (1.40-6.50); Neutrophils % (auto) 75.4 %; Platelet Count 321 K/uL (130-400); RDW Coefficient of Variation 15.7 % (11.5-14.5); RDW Standard Deviation 43.9 fL (36.4-46.3); Red Blood Count 3.89 M/uL (4.20-5.40); White Blood Count 11.51 K/ul (4.8-10.8)
[2023-12-28] MEDS ORDERED: ACETAMINOPHEN 325 MG TAB PO PRN (07:45)
[2023-12-28] MEDS: MAGNESIUM HYDROXIDE SUSP 30 ML UDC PO PRN (08:47)
[2023-12-28] MEDS: FERROUS SULFATE 325 MG TAB PO SCH (08:47)
[2023-12-28] MEDS: oxyCODONE/ACETAMINOPHEN 5mg/325mg TAB PO PRN (08:48)
[2023-12-28] MEDS: PRENATAL VITAMIN 1 TAB PO SCH (08:48)
[2023-12-28] MEDS: IBUPROFEN 600 MG TAB PO PRN (08:48)
[2023-12-28] MEDS: bisacodyL 5 MG TABEC PO SCH (21:27)
[2023-12-28] MEDS: SENNA 8.6 MG TAB PO PRN (21:28)
--- NOTE | 2023-12-29 07:21 | Obstetrical Progress Note ---
Date of Service <Jose Guillen MD - Last Filed: 12/29/23 07:28> December 29, 2023 Assessment & Plan <Jose Guillen MD - Last Filed: 12/29/23 07:28> (1) Encounter for assessment: visit type: exam and care immediately after delivery Qualified Code(s): Z39.0 - Encounter for care and examination of mother immediately after delivery Plan 23F y/o G 3 P 3 39 Wk GA presented for elective PPD 2 stable, routine management -Patient is voiding and ambulating independently -Pain is well controlled on as needed analgesia -Tolerating crackers without nausea or vomiting -Planned to Breast and bottle feed * Reassess d/c readiness today * Encouraged to ambulate as tolerated and hydrate well. * Continue analgesics prn * 1 weeks OB outpatient follow-up and removal of DEMARCO dressing <Margareth Tinajero MD, FACOG - Last Filed: 12/29/23 08:24> (1) Encounter for assessment: Subjective <Jose Guillen MD - Last Filed: 12/29/23 07:28> Ambulation: ambulating normally Voiding: no voiding problems Diet Tolerance:: regular diet Lochia:: Moderate Feeding Type:: breast feeding Pt is a 23 y/o female who is now PPD#2 following elective C-sec at 39 weeks. Reports feeling well overall this morning. No abdominal cramping and 4/10 pain, well managed on analgesics. Voiding well. Tolerating regular diet and able to ambulate. bowel movements soft stools 4-6 since yesterday. Some persistent lochia with overall improvement as of this morning. Both Breast and bottle feeding. Review of Systems -Denies fever or chills -Denies dyspnea, chest pain, or palpitations -Denies breast pain -Denies dysuria -Denies headache or changes in vision Physical Exam <Jose Guillen MD - Last Filed: 12/29/23 07:28> General: Alert and oriented. No acute distress Cardiac: Regular rate and rhythm, no murmurs appreciated Respiratory: Lungs clear to auscultation bilaterally, No increased work of breathing Abdominal: Soft, appropriately tender over the longitudinal scar, DEMARCO dressing on - suctioning well, no fresh bleeds. Bowel sounds present. Uterus: Uterine fundus firm, palpable at umbilicus level. Extremities: no lower extremity edema, calves non-tender bilaterally Results & Data <Jose Guillen MD - Last Filed: 12/29/23 07:28> Vital Signs (Past 12 Hours) Vital Signs Temp Pulse Resp BP Pulse Ox O2 Del Method 12/29/23 00:00 36.6 C 79 16 118/78 98 Room Air 12/28/23 21:00 36.6 C 82 16 114/73 97 Room Air Supervising Physician <Margareth Tinajero MD, FACOG - Last Filed: 12/29/23 08:24> Co-Signing Physician Notes Resident Physician Supervision Note: I interviewed and examined the patient. Discussed with PGY 1 and agree with findings and plan as documented in the note. Any exceptions or clarifications are listed here: Doing well. Desires d/c. Instructions given. Documented By: Margareth Tinajero MD, FACOG Resident Activity Tracking <Jose Guillen MD - Last Filed: 12/29/23 07:28> Resident Involvement: Resident Care Provided Care Provided: OB Delivery
[2023-12-29 07:31] LABS: Hematocrit (blood only) 29.7 % (37.0-47.0); Hemoglobin 8.9 g/dl (12.0-16.0)
[2023-12-29] MEDS ORDERED: bisacodyL 10 MG SUPP PR PRN (08:59)
--- NOTE | 2023-12-30 18:50 | Discharge Summary ---
Date of Service December 30, 2023 Admission HPI Per Admitting Provider Patient is a 23-year-old 3 para 2-0-0-2 female EDC 01/01/2026 who presents at 39 weeks for repeat section and bilateral salpingectomies. Her first section was done because of nonreassuring heart rate pattern and it was done emergently. Her second section was as a elective repeat. 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 GBS is also positive. Admission Exam (Per Admitting) Constitutional WD/WN, vitals as above Respiratory normal respiratory effort, lungs clear to auscultation Cardiovascular RRR, no murmur, no edema Psychiatric A+Ox3, euthymic affect Genitourinary OB Exam Abdomen: + fundal height (term), + heart tones (140's) and + vertex Discharge Data Consultations 12/27/23 05:41 Consult Anesthesiology Stat Procedures Performed Operation Date: 12/27/23 07:30 Actual Procedures p Section in LD with result of live male child at 0808 - Cassie Amanda MD, [facility] Course (1) Encounter for assessment: Plan 23F y/o G 3 P 3 39 Wk GA presented for elective PPD 2 stable, routine management -Patient is voiding and ambulating independently -Pain is well controlled on as needed analgesia -Tolerating crackers without nausea or vomiting -Planned to Breast and bottle feed * Reassess d/c readiness today * Encouraged to ambulate as tolerated and hydrate well. * Continue analgesics prn * 1 weeks OB outpatient follow-up and removal of DEMARCO dressing Discharge Plan Discharge Items Patient Disposition: Home - Self-Care Reason For Visit: History of Section; Request for Steriliza Discharge Diagnosis: Post Activity: Per Instructions section Bathing: Keep incision dry and May shower/bathe in 3 days Non-emergency contact: Primary Care Provider, Guitar Instructor and Software Test And Validation Engineer Call non-emergency contact if: you have any medication questions Follow-up/Referrals: Analilia Still PA-C [Primary Care Provider] - Diet: Regular Fluids: 2000ml (8 cups) Addtl Attending Provider Instructions: ACTIVITY RECOMMENDATIONS: * Gradual return to full activity over the next 2-3 weeks. * No lifting - nothing heavier than baby over the next 2-3 weeks. * Do not engage in vigorous exercise, sexual activity or sports until cleared by your physician. * Do not drive or operate any motorized equipment until cleared by your physician. * You may shower/bathe daily. MEDICATIONS: For discomfort or pain, you may use Acetaminophen (Tylenol), Ibuprofen (Advil), or Naproxen (Aleve) following the package directions. For constipation you may use Colace following the package directions. BREAST CARE: If you are not breast feeding: * Wear a supportive bra 24 hours a day for one to two weeks. * Avoid stimulating your breasts and nipples as much as possible during the first few weeks after delivery. * When taking a shower, have the warm water hit your back, not breasts. * When your breasts feel full, apply ice packs. Usually three to four times a day helps ease the discomfort. * Take a mild pain medication (Tylenol / Motrin) when you are uncomfortable. If breast feeding: * Use breast milk to lubricate nipples. Lansinoh cream may be used for sore nipples. You do not need to remove cream prior to breast feeding. If using a different brand of cream, check the label for directions regarding removal of cream prior to nursing. * Wear a supportive bra. * If having problems with breasts or breast feeding, call a analytical consultant or your health care provider. SPECIAL CARE INSTRUCTIONS: When you are discharged from the hospital, it is important for you to follow the instructions listed below: * During the first week at home, you should be able to care for yourself and your baby. In addition, the usual light household activities are encouraged. * Limit your activities to the way you feel. Do not try to clean the house or move furniture. Be sensible. * If you actively engage in sports and have done so up until the time of your delivery, you may resume these activities as soon as you feel able. This may take up to one month or even longer. Use good judgment. * Continue to take your vitamins for at least six weeks after the lucy h of your baby. * Your diet need not be limited unless you were on a special diet before your delivery. Breast-feeding mothers need around 2500 calories per day and at least 64-80 ounces of fluid per day (8 to 10 glasses). * You should eat foods from the four major food groups. Crash diets or fad diets are to be avoided. Eating lean meats, fresh fruits and vegetables, low-fat dairy products, high fiber foods and a regular exercise program, will help you get back to your pre- weight without putting your health at risk. * Constipation is sometimes a problem after delivery. Take a mild laxative as needed. If breast feeding, Milk of Magnesia is acceptable to use. You may use a suppository or Fleets enema. * A daily shower or tub bath is suggested. Wash incision daily with warm soapy water and pat dry. It doesn't need to be covered unless drainage is present. * A bloody vaginal discharge will usually continue until around four weeks . A small amount of bleeding may continue for as long as six weeks. Vaginal discharge changes from the bright red bleeding after delivery to pink then brownish and finally yellowish-pink before becoming white and disappearing. * Bleeding may increase with activity. Your first period may come in 4-8 weeks. If you are breast feeding, your period may be delayed even longer. * [place] (sex) can begin whenever both you and your partner feel comfortable and do not have any form of genital infection. It is recommended that you wait at least six weeks for internal and external healing to occur. If you have questions, please talk to your health care practitioner. A condom should be used to prevent infection and . * Foreplay, gentle intercourse and lubrication is very important the first several times to prevent pain. A water-based lubricant such as K-Y jelly or Astroglide may be used. * If you have RH negative blood and your baby is RH positive, you will receive RHOGAM by injection prior to discharge. The nurse will give you a card to keep with you that has the date and place that you received RHOGAM after delivery. * During your care, you had a Rubella screen done to check for the presence of rubella antibodies in your blood. If your test was negative, you will receive a Rubella vaccine prior to discharge. This vaccine may cause a fever, soreness at the injection site and flu-like symptoms. If these symptoms persist, notify your health care practitioner. is not advised for one month after a Rubella vaccine. * Verbalizes understanding of car seat law as reviewed with patient nursing. * Car Seat hand-out given and reviewed with patient by nursing. * Shaken baby information reviewed with patient by nursing. Call you doctor if: * Heavy bleeding (saturating several pads an hour) or passing clots the size of your fist. * A fever >101 degrees F (38.3 degrees C) on two occasions four hours apart and/or chills. * Unusual pain in the pelvic or vaginal areas. * Call the doctor for any increased redness, drainage or swelling around the incision and any pain unrelieved by prescribed pain medication. * "Baby Blues" lasting longer than two weeks. If you have any questions or concerns, call your health care practitioner at . FOLLOW UP VISIT: * Please call the office at to schedule a 6 week exam ination. It is important you keep this appointment. It is important for you to make arrangements for either yearly or twice yearly check-ups thereafter. Pending Studies at Discharge: Yes Studies:: pathology report Stand-Alone Forms: [facility], Smoking Cessation Medications and DC Order Prescriptions: New oxycodone-acetaminophen [Percocet] 5-325 mg Tablet 1 - 2 tab PO Q4H PRN (Reason: pain) Qty: 10 0RF Continued [id number] 1 mg Tablet 1 tab PO QAM Discharge Orders: Discharge Order (Routine); Ordered 12/29/23 Ordered By: Jose Guillen Admission Data Admit Date/Time: 12/27/23 05:34 Attending Provider: Cassie Amnada Admit Provider: Cassie Amanda Primary Care Provider: Analilia Still Other Providers: [place] Other Interventions: Discharge Summary Assessment (RN) Last Done: 12/29/23 11:03 Coding Level of Care Code None Diagnoses Encounter for care or examination of mother immediately after delivery Z39.0 visit type: exam and care immediately after delivery
== END 2023-12-29 12:50 | disposition home or self-care (01) | DRG 785 ==
LOC: 4S1 05:34 → EDSTATUS 08:50 → 4E2 14:21
DX: O34.212 Maternal care for vertical scar from previous cesarean delivery; Z88.8 Allergy status to other drugs, medicaments and biological substances; Z3A.39 39 weeks gestation of pregnancy; Z30.2 Encounter for sterilization; Z37.0 Single live birth